=== PATIENT | female | born 1935 | race African-American/Black ===

== ENCOUNTER 2019-06-30 18:07 | Emergency (ER) | payer MEDICARE, BC ==
[~2019-06-30] VITALS: Ht 162.6 cm; Wt 66.0 kg
[2019-06-30] MEDS ORDERED: ONDANSETRON 4MG ODT PO ONE (18:45)
[2019-06-30] MEDS ORDERED: MORPHINE SULFATE 10 MG/ML CPJ IM ONE (18:45)
[2019-06-30 20:59] VITALS: BP 183/68
== END 2019-06-30 21:02 | disposition home or self-care (01) ==
LOC: ER 18:07
DX: S42.214A Unspecified nondisplaced fracture of surgical neck of right humerus, initial encounter for closed fracture (principal); I12.9 Hypertensive chronic kidney disease with stage 1 through stage 4 chronic kidney disease, or unspecified chronic kidney disease; N18.9 Chronic kidney disease, unspecified; J44.9 Chronic obstructive pulmonary disease, unspecified; Z88.0 Allergy status to penicillin; Z88.2 Allergy status to sulfonamides; Z99.81 Dependence on supplemental oxygen; W01.0XXA Fall on same level from slipping, tripping and stumbling without subsequent striking against object, initial encounter; Y93.89 Activity, other specified; Y92.018 Other place in single-family (private) house as the place of occurrence of the external cause
CPT/HCPCS: 71045; 73030; 96372; 99283; J2270; Q0162; A4565

== ENCOUNTER 2019-07-11 10:44 | Inpatient (IN) | payer MEDICARE, OTHER ==
[~2019-07-11] VITALS: Ht 160 cm; Wt 49.4 kg
[2019-07-11] MEDS ORDERED: ONDANSETRON HCL 4MG/2ML INJ IV STA (11:58)
[2019-07-11] MEDS ORDERED: MORPHINE SULFATE 4 MG/ML CPJ (NOT FOR IM USE) IV STA (11:58)
[2019-07-11 12:31] LABS: CHLORIDE 107 mEq/L (98-107)
[2019-07-11 12:32] LABS: INR 0.9; PROTHROMBIN TIME 9.4 sec (9.6-11.0)
[2019-07-11 12:38] LABS: HEMATOCRIT. 29.4 % (36.0-48.0); HEMOGLOBIN. 9.7 g/dL (12.0-16.0); MEAN CORPUSCULAR HEMOGLOBIN 33.7 pg (28.0-32.0); MEAN CORPUSCULAR VOLUME 102.1 fL (81.0-99.0); MEAN PLATELET VOLUME 6.7 fl (7.4-10.4); PLATELET 244 x1000/uL (130-400); RED BLOOD CELL COUNT 2.88 mill/uL (4.2-5.4); RED CELL DISTRIBUTION WIDTH 15.9 % (11.6-14.6)
[2019-07-11 12:39] LABS: EOSINOPHILS % 4.1 % (0.0-5.0); LYMPHOCYTES % 12.4 % (20.0-50.0); MONOCYTES % 4.5 % (2.0-8.0)
[2019-07-11] MEDS ORDERED: SODIUM CHLORIDE 0.9% 1,000 ML IV ONE (14:00)
[2019-07-11 20:00] VITALS: BP 144/71
[2019-07-11] MEDS ORDERED: ONDANSETRON HCL 4MG/2ML INJ IV PRN (20:00)
[2019-07-11] MEDS ORDERED: GUAIFENESIN 200MG/10ML SUGAR FREE UDC PO PRN (20:00)
[2019-07-11] MEDS ORDERED: MAGNESIUM HYDROXIDE 400MG/5ML 30ML UDC PO PRN (20:00)
[2019-07-11] MEDS ORDERED: IPRATROPIUM/ALBUTEROL 0.5-3(2.5)MG/3ML NEB NEB PRN (20:00)
[2019-07-11] MEDS ORDERED: DIPHENHYDRAMINE 12.5MG/5ML UDC PO PRN (20:00)
[2019-07-11] MEDS ORDERED: MAGNESIUM/ALUMINUM HYDROXIDE/SIMETHICONE 30ML UDC PO PRN (20:00)
[2019-07-11] MEDS ORDERED: ENOXAPARIN 30MG/0.3ML SYR SUBCUT SCH (20:30)
[2019-07-11] MEDS: PANTOPRAZOLE 40MG DR TABLET PO SCH (21:50)
[2019-07-11] MEDS: SODIUM CHLORIDE 0.9% INJ 3ML FLUSH IVF SCH (21:54)
[2019-07-11 22:26] VITALS: BP 122/64
[2019-07-11] MEDS ORDERED: TRAM150C25 PO (23:50)
[2019-07-11] MEDS ORDERED: PANT40TA4 PO (23:50)
[2019-07-11] MEDS ORDERED: DIPH50CA47 PO (23:50)
[2019-07-11] MEDS ORDERED: LOSA100T32 MT (23:50)
[2019-07-11] MEDS ORDERED: ATROV INH (23:50)
[2019-07-12] VITALS: BP 145/65
[2019-07-12] MEDS: IPRATROPIUM/ALBUTEROL 0.5-3(2.5)MG/3ML NEB HHN SCH ×6 (00:50→19:57)
[2019-07-12] MEDS: TRAMADOL 50MG TABLET PO PRN ×3 (02:47→15:09)
[2019-07-12 04:00] VITALS: BP 126/85
[2019-07-12] MEDS: SODIUM CHLORIDE 0.9% INJ 3ML FLUSH IVF SCH ×2 (06:25→14:50)
[2019-07-12] MEDS: PANTOPRAZOLE 40MG DR TABLET PO SCH (06:25)
[2019-07-12 08:00] VITALS: BP 140/80
[2019-07-12] MEDS: LOSARTAN POTASSIUM 100 MG TABLET PO SCH (08:53)
[2019-07-12] MEDS: DOCUSATE SODIUM 100MG CAPSULE PO SCH ×2 (08:53→17:00)
[2019-07-12 12:00] VITALS: BP 123/50
[2019-07-12 16:00] VITALS: BP 156/67
[2019-07-12] MEDS: DEXT 5%/0.45% NACL 1000ML 1,000 ML IV SCH (18:35)
[2019-07-12 20:00] VITALS: BP 146/69
[2019-07-13] VITALS: BP 146/63
[2019-07-13] MEDS: SODIUM CHLORIDE 0.9% INJ 3ML FLUSH IVF SCH ×3 (03:09→21:25)
[2019-07-13 04:00] VITALS: BP 148/71
[2019-07-13] MEDS: IPRATROPIUM/ALBUTEROL 0.5-3(2.5)MG/3ML NEB HHN SCH ×6 (05:11→21:08)
[2019-07-13] MEDS: DEXT 5%/0.45% NACL 1000ML 1,000 ML IV SCH ×2 (07:05→21:24)
[2019-07-13] MEDS ORDERED: NORMAL SALINE 0.9% 10 ML SYR ONE (07:23)
[2019-07-13] MEDS ORDERED: VANCOMYCIN HCL 1 GM/VIAL ONE (07:23)
[2019-07-13] MEDS ORDERED: GENTAMICIN SULF 40MG/ML 2ML VIAL ONE (07:23)
[2019-07-13] MEDS ORDERED: BACITRACIN 50,000 UNITS/VIAL ONE (07:23)
[2019-07-13] MEDS ORDERED: BACITRACIN 15GM TUBE TOP ONE (07:23)
[2019-07-13] MEDS ORDERED: CLINDAMYCIN 600 MG in DEXTROSE 5% WATER 50 ML IV SCH (07:45)
[2019-07-13] MEDS ORDERED: FENTANYL CITRATE/PF 50MCG/ML 2ML VIAL ONE (07:46)
[2019-07-13] MEDS ORDERED: ROCURONIUM BROMIDE 10MG/ML VIAL 5ML IV ONE (07:46)
[2019-07-13] MEDS ORDERED: MIDAZOLAM HCL 2 MG/2 ML VIAL ONE (07:47)
[2019-07-13] MEDS ORDERED: ONDANSETRON HCL 4MG/2ML INJ ONE (07:47)
[2019-07-13] MEDS ORDERED: SUCCINYLCHOLINE CHLORIDE 200MG/10ML IV ONE (07:47)
[2019-07-13] MEDS ORDERED: METOCLOPRAMIDE HCL 10MG/2ML VIAL ONE (07:47)
[2019-07-13] MEDS ORDERED: SODIUM CHLORIDE 0.9% 10ML VIAL ONE (07:47)
[2019-07-13] MEDS ORDERED: PHENYLEPHRINE HCL 10 MG/ML 1ML (IV VIAL) IV ONE (07:47)
[2019-07-13] MEDS ORDERED: GLYCOPYRROLATE 0.2 MG/ML 2ML VIAL ONE (07:47)
[2019-07-13] MEDS ORDERED: PROPOFOL 200MG/20ML VIAL IV ONE (07:47)
[2019-07-13] MEDS ORDERED: EPHEDRINE SULFATE 50MG/ML VIAL ONE (07:47)
[2019-07-13] MEDS ORDERED: NEOSTIGMINE METHYLSULFATE 1MG/ML 10 ML VIAL ONE (07:47)
[2019-07-13] MEDS ORDERED: LIDOCAINE HCL/PF 1% 10 MG/ML 5ML VIAL ONE (07:47)
[2019-07-13] MEDS ORDERED: CLINDAMYCIN 900 MG PREMIX 50 ML IV ONE (07:51)
[2019-07-13] MEDS ORDERED: BUPIVACAINE HCL/EPINEPHRINE 0.5%/0.0005 30ML ONE (07:54)
[2019-07-13] MEDS ORDERED: ROPIVACAINE HCL 10MG/ML 20 ML VIAL EPI ONE (07:56)
[2019-07-13 08:00] VITALS: BP 165/69
[2019-07-13] MEDS: DOCUSATE SODIUM 100MG CAPSULE PO SCH ×2 (08:46→16:56)
[2019-07-13] MEDS: LOSARTAN POTASSIUM 100 MG TABLET PO SCH (08:46)
[2019-07-13] MEDS: FAMOTIDINE 20MG TABLET PO SCH (08:46)
[2019-07-13] MEDS ORDERED: LABETALOL HCL 5MG/ML VIAL 20ML IV ONE (09:39)
[2019-07-13] MEDS ORDERED: ONDANSETRON HCL 4MG/2ML INJ IV PRN (10:15)
[2019-07-13] MEDS ORDERED: MORPHINE SULFATE 2 MG/ML CPJ (NOT FOR IM USE) IV PRN (10:15)
[2019-07-13] MEDS ORDERED: MEPERIDINE HCL/PF 25MG/ML CPJ IV PRN (10:15)
[2019-07-13] MEDS ORDERED: MORPHINE SULFATE 10 MG/ML CPJ ONE (10:19)
[2019-07-13] MEDS ORDERED: HYDROMORPHONE PCA 50 ML IV ONE (10:21)
[2019-07-13] MEDS ORDERED: SODIUM CHLORIDE 0.9% 1,000 ML IV ONE (10:42)
[2019-07-13] MEDS ORDERED: HYDROMORPHONE PCA 10MG/50ML IV PRN (11:00)
[2019-07-13] MEDS ORDERED: DIPHENHYDRAMINE INJ IV PRN (11:00)
[2019-07-13] MEDS: HYDROMORPHONE HCL/PF 2MG/ML CPJ IV PRN ×2 (11:00→11:36)
[2019-07-13] MEDS ORDERED: ONDANSETRON INJ IV PRN (11:00)
[2019-07-13] MEDS ORDERED: NALOXONE INJ IV PRN (11:00)
[2019-07-13 12:30] VITALS: BP 121/78
[2019-07-13 16:00] VITALS: BP 100/52
[2019-07-13] MEDS: CLINDAMYCIN 600 MG in DEXTROSE 5% WATER 50 ML IV SCH (16:55)
[2019-07-13 20:00] VITALS: BP 145/59
[2019-07-14] VITALS: BP 128/56
[2019-07-14] MEDS: CLINDAMYCIN 600 MG in DEXTROSE 5% WATER 50 ML IV SCH ×3 (00:45→15:44)
[2019-07-14 04:00] VITALS: BP 103/57
[2019-07-14] MEDS: IPRATROPIUM/ALBUTEROL 0.5-3(2.5)MG/3ML NEB HHN SCH ×6 (04:00→21:31)
[2019-07-14] MEDS: SODIUM CHLORIDE 0.9% INJ 3ML FLUSH IVF SCH ×4 (06:00→23:42)
[2019-07-14 08:00] VITALS: BP 160/134
[2019-07-14] MEDS: LOSARTAN POTASSIUM 100 MG TABLET PO SCH (09:21)
[2019-07-14] MEDS: CLONIDINE 0.1MG TABLET PO PRN (09:21)
[2019-07-14] MEDS: DOCUSATE SODIUM 100MG CAPSULE PO SCH ×2 (09:22→17:02)
[2019-07-14] MEDS: FAMOTIDINE 20MG TABLET PO SCH (09:22)
[2019-07-14] MEDS: ACETAMINOPHEN 325MG TABLET PO PRN ×3 (09:23→20:48)
[2019-07-14] MEDS: DEXT 5%/0.45% NACL 1000ML 1,000 ML IV SCH ×2 (09:45→23:05)
[2019-07-14 10:42] LABS: HEMATOCRIT. 23.4 % (36.0-48.0); HEMOGLOBIN. 7.7 g/dL (12.0-16.0); MEAN CORPUSCULAR HEMOGLOBIN 33.6 pg (28.0-32.0); MEAN CORPUSCULAR VOLUME 102.4 fL (81.0-99.0); MEAN PLATELET VOLUME 7.1 fl (7.4-10.4); PLATELET 220 x1000/uL (130-400); RED BLOOD CELL COUNT 2.28 mill/uL (4.2-5.4); RED CELL DISTRIBUTION WIDTH 15.8 % (11.6-14.6)
[2019-07-14 12:00] VITALS: BP 133/53
[2019-07-14] MEDS: TRAMADOL 50MG TABLET PO PRN (12:58)
[2019-07-14 16:00] VITALS: BP 144/54
[2019-07-14] MEDS ORDERED: TRAMADOL 50MG TABLET PO PRN (16:00)
[2019-07-14 16:14] LABS: PLATELET ESTIMATE NORMAL
[2019-07-14 20:00] VITALS: BP 94/36
[2019-07-15] VITALS (9 sets, daily range): BP systolic 93–132; BP diastolic 33–59
[2019-07-15] MEDS: IPRATROPIUM/ALBUTEROL 0.5-3(2.5)MG/3ML NEB HHN SCH ×7 (01:20→23:50)
[2019-07-15] MEDS: ACETAMINOPHEN 325MG TABLET PO PRN ×2 (02:11→22:09)
[2019-07-15] MEDS: SODIUM CHLORIDE 0.9% INJ 3ML FLUSH IVF SCH ×3 (06:00→23:10)
[2019-07-15] MEDS: FAMOTIDINE 20MG TABLET PO SCH (09:39)
[2019-07-15] MEDS: LOSARTAN POTASSIUM 100 MG TABLET PO SCH (09:39)
[2019-07-15] MEDS: DOCUSATE SODIUM 100MG CAPSULE PO SCH ×2 (09:39→17:33)
[2019-07-15] MEDS: DEXT 5%/0.45% NACL 1000ML 1,000 ML IV SCH (11:43)
[2019-07-16] VITALS (7 sets, daily range): BP systolic 118–152; BP diastolic 46–77
[2019-07-16 01:00] LABS: HEMATOCRIT 26.3 % (36.0-48.0); HEMOGLOBIN 8.8 g/dL (12.0-16.0)
[2019-07-16] MEDS: IPRATROPIUM/ALBUTEROL 0.5-3(2.5)MG/3ML NEB HHN SCH ×3 (04:00→20:00)
[2019-07-16] MEDS: SODIUM CHLORIDE 0.9% INJ 3ML FLUSH IVF SCH ×3 (05:13→23:23)
[2019-07-16] MEDS: LOSARTAN POTASSIUM 100 MG TABLET PO SCH (08:19)
[2019-07-16] MEDS: FAMOTIDINE 20MG TABLET PO SCH (08:19)
[2019-07-16] MEDS: DOCUSATE SODIUM 100MG CAPSULE PO SCH ×2 (08:19→17:24)
[2019-07-16 14:22] LABS: HEMATOCRIT 28.7 % (36.0-48.0); HEMOGLOBIN 9.6 g/dL (12.0-16.0); MEAN CORPUSCULAR VOLUME 98.9 fL (81.0-99.0); PLATELET 187 x1000/uL (130-400); RED CELL DISTRIBUTION WIDTH 19.3 % (11.6-14.6)
[2019-07-16] MEDS ORDERED: HYDROCODONE/ACETAMINOPHEN 10/325MG TABLET PO PRN (21:30)
[2019-07-16] MEDS ORDERED: KETOROLAC 15MG/ML VIAL IV PRN (21:30)
[2019-07-17] VITALS: BP 155/65
[2019-07-17] MEDS: IPRATROPIUM/ALBUTEROL 0.5-3(2.5)MG/3ML NEB HHN SCH ×6 (00:46→21:24)
[2019-07-17 04:00] VITALS: BP 153/63
[2019-07-17] MEDS: SODIUM CHLORIDE 0.9% INJ 3ML FLUSH IVF SCH ×3 (05:38→21:07)
[2019-07-17 08:00] VITALS: BP 147/79
[2019-07-17] MEDS: LOSARTAN POTASSIUM 100 MG TABLET PO SCH (08:41)
[2019-07-17] MEDS: DOCUSATE SODIUM 100MG CAPSULE PO SCH ×2 (08:41→17:00)
[2019-07-17] MEDS: FAMOTIDINE 20MG TABLET PO SCH (08:41)
[2019-07-17 12:00] VITALS: BP 147/60
[2019-07-17 16:00] VITALS: BP 146/66
[2019-07-17] MEDS: HYDROCODONE/ACETAMINOPHEN 10/325MG TABLET PO PRN ×2 (17:19→23:35)
[2019-07-17 20:00] VITALS: BP 186/84
[2019-07-17] MEDS: CLONIDINE 0.1MG TABLET PO PRN (21:02)
[2019-07-17] MEDS ORDERED: ZOLPIDEM TARTRATE 5MG TABLET PO PRN (22:00)
[2019-07-18] VITALS: BP 163/64
[2019-07-18] MEDS: IPRATROPIUM/ALBUTEROL 0.5-3(2.5)MG/3ML NEB HHN SCH ×4 (01:45→12:00)
[2019-07-18 04:00] VITALS: BP 163/64
[2019-07-18] MEDS: CLONIDINE 0.1MG TABLET PO PRN (05:36)
[2019-07-18] MEDS: SODIUM CHLORIDE 0.9% INJ 3ML FLUSH IVF SCH (05:37)
[2019-07-18 08:00] VITALS: BP 133/57
[2019-07-18] MEDS: FAMOTIDINE 20MG TABLET PO SCH (09:19)
[2019-07-18] MEDS: DOCUSATE SODIUM 100MG CAPSULE PO SCH (09:19)
[2019-07-18] MEDS: LOSARTAN POTASSIUM 100 MG TABLET PO SCH (09:19)
[2019-07-18 11:21] VITALS: BP 133/57
[2019-07-18 12:00] VITALS: BP 105/60
== END 2019-07-18 13:58 | disposition home health service (06) | DRG 493 ==
LOC: ER 10:44 → 6EST 14:19 → ENRESERV 16:42 → ER 18:31
PROVIDERS: ADMIT Internal Medicine; ATTEND Internal Medicine
PROC: 0PSF36Z Reposition Right Humeral Shaft with Intramedullary Internal Fixation Device, Percutaneous Approach (ICD-10-PCS; principal; 2019-07-13)
PROC: 0LQ10ZZ Repair Right Shoulder Tendon, Open Approach (ICD-10-PCS; 2019-07-13)
PROC: 02HV33Z Insertion of Infusion Device into Superior Vena Cava, Percutaneous Approach (ICD-10-PCS; 2019-07-15)
PROC: B548ZZA Ultrasonography of Superior Vena Cava, Guidance (ICD-10-PCS; 2019-07-15)
PROC: 30233N1 Transfusion of Nonautologous Red Blood Cells into Peripheral Vein, Percutaneous Approach (ICD-10-PCS; 2019-07-15)
DX: S42.201A Unspecified fracture of upper end of right humerus, initial encounter for closed fracture (principal); J96.10 Chronic respiratory failure, unspecified whether with hypoxia or hypercapnia; E44.0 Moderate protein-calorie malnutrition; N18.9 Chronic kidney disease, unspecified; Z96.649 Presence of unspecified artificial hip joint; D64.9 Anemia, unspecified; J43.9 Emphysema, unspecified; M75.101 Unspecified rotator cuff tear or rupture of right shoulder, not specified as traumatic; I12.9 Hypertensive chronic kidney disease with stage 1 through stage 4 chronic kidney disease, or unspecified chronic kidney disease; W18.39XA Other fall on same level, initial encounter; Z87.891 Personal history of nicotine dependence; Y93.89 Activity, other specified; Y92.89 Other specified places as the place of occurrence of the external cause; Z99.81 Dependence on supplemental oxygen; Y99.8 Other external cause status; Z88.1 Allergy status to other antibiotic agents; Z88.2 Allergy status to sulfonamides; Z79.899 Other long term (current) drug therapy
CPT/HCPCS: 36415; 36573; 71045; 73030; 73060; 76000; 76937; 80048; 82962; 85014; 85018; 85027; 86850; 86900; 86920; 93971; 94640; 97116; 97162; 97530; 99285; C1725; J0171; J0330; J1170; J1200; J1580; J1650; J1885; J2175; J2250; J2270; J2370; J2405; J2704; J2710; J2765; J2795; J3010; J3370; J3490; J7030; J7040; J7060; J7620; P9016; Q0163

== ENCOUNTER 2019-08-21 02:20 | Inpatient (IN) | payer MEDICARE, OTHER ==
[~2019-08-21] VITALS: Ht 160 cm; Wt 49.4 kg
[~2019-08-21 02:20] MED LIST: ATROV INH; DIPH50CA47 PO; LOSA100T32 MT; PANT40TA4 PO; TRAM150C25 PO
[2019-08-21] MEDS ORDERED: SODIUM CHLORIDE 0.9% 1000ML BAG (SEPSIS BOLUS) IV ONE (02:45)
[2019-08-21] MEDS ORDERED: KETOROLAC 30MG/ML VIAL IV STA (02:45)
[2019-08-21] MEDS ORDERED: ONDANSETRON HCL 4MG/2ML INJ IV STA (02:45)
[2019-08-21 03:29] LABS: HEMATOCRIT. 25.4 % (36.0-48.0); HEMOGLOBIN. 8.4 g/dL (12.0-16.0); MEAN CORPUSCULAR HEMOGLOBIN 33.4 pg (28.0-32.0); MEAN CORPUSCULAR VOLUME 101.4 fL (81.0-99.0); MEAN PLATELET VOLUME 7.6 fl (7.4-10.4); PLATELET 213 x1000/uL (130-400); RED CELL DISTRIBUTION WIDTH 15.1 % (11.6-14.6)
[2019-08-21 03:35] LABS: CHLORIDE 100 mEq/L (98-107)
[2019-08-21 03:39] LABS: ETHANOL BLOOD < 10 mg/dL
[2019-08-21 04:17] LABS: PROTHROMBIN TIME 10.7 sec (9.6-11.0)
[2019-08-21 04:25] LABS: BG BASE EXCESS 5.9 mmol/L (-2.0-2.0); BG CARBOXYHEMOGLOBIN 0.5 % (0.5-1.5); BG DEOXYHEMOGLOBIN 21.8 % (0.0-5.0); BG FRACTION INSPIRED OXYGEN 21; BG HCO3 ACT 30.8 mmol/L (22.0-26.0); BG OXYGEN SATURATION 78.1 % (92.0-98.5); BG OXYHEMOGLOBIN 77.7 % (94.0-97.0); BG PCO2 47.2 mmHg (35.0-45.0); BG PH 7.433 (7.350-7.450); BG PO2 40.5 mmHg (75.0-100.0); BG SAMPLE SITE LEFT BRACHIAL; BG TOTAL HEMOGLOBIN 9.1 g/dL (12.0-18.0); BG VENT MODE ROOM AIR
[2019-08-21 05:21] LABS: PLATELET ESTIMATE NORMAL
[2019-08-21] MEDS ORDERED: SODIUM CHLORIDE 0.9% 1,000 ML IV ONE (05:52)
[2019-08-21 07:37] LABS: CLARITY URINE CLEAR (CLEAR); COLOR URINE YELLOW (YELLOW); KETONES URINE NEGATIVE (NEGATIVE); LEUKOCYTE ESTERASE URINE NEGATIVE (NEGATIVE); NITRITE URINE NEGATIVE (NEGATIVE); OCCULT BLOOD URINE NEGATIVE (NEGATIVE); PROTEIN URINE 1+ (NEGATIVE); SPECIFIC GRAVITY URINE 1.015 (1.005-1.030)
[2019-08-21 08:10] LABS: *AMPHETAMINES SCREEN URINE NEGATIVE (NEGATIVE); *BARBITURATES SCREEN URINE NEGATIVE (NEGATIVE); *BENZODIAZEPINES SCREEN URINE NEGATIVE (NEGATIVE); *COCAINE SCREEN URINE NEGATIVE (NEGATIVE)
[2019-08-21 08:11] LABS: CANNABINOID URINE SCREEN NEGATIVE (NEGATIVE); METHADONE URINE SCREEN NEGATIVE (NEGATIVE); OPIATES URINE SCREEN NEGATIVE (NEGATIVE); PHENCYCLIDINE URINE SCREEN NEGATIVE (NEGATIVE)
[2019-08-21] MEDS ORDERED: DOCUSATE SODIUM 100MG CAPSULE PO PRN (09:15)
[2019-08-21] MEDS ORDERED: ONDANSETRON HCL 4MG/2ML INJ IV PRN (09:15)
[2019-08-21] MEDS ORDERED: GUAIFENESIN 200MG/10ML SUGAR FREE UDC PO PRN (09:15)
[2019-08-21] MEDS ORDERED: MAGNESIUM/ALUMINUM HYDROXIDE/SIMETHICONE 30ML UDC PO PRN (09:15)
[2019-08-21] MEDS ORDERED: ACETAMINOPHEN 325MG TABLET PO PRN (09:15)
[2019-08-21 10:14] LABS: T4 FREE 1.04 ng/dL (0.76-1.46)
[2019-08-21 10:17] LABS: FOLIC ACID (FOLATE) SERUM 5.1 ng/mL (>5.38)
[2019-08-21] MEDS ORDERED: ENOXAPARIN 30MG/0.3ML SYR SUBCUT SCH (12:00)
[2019-08-21] MEDS ORDERED: FOLIC ACID 1 MG, THIAMINE HCL 100 MG, MVI, ADULT NO.1 10 ML in DEXTROSE 5% WATER 1,000 ML IV ONE ×4 (15:30)
[2019-08-21] MEDS ORDERED: TRAMADOL 50MG TABLET PO PRN (16:47)
[2019-08-21] MEDS ORDERED: NITROGLYCERIN 0.4MG TABLET SL SL PRN (17:00)
[2019-08-21] MEDS ORDERED: LEVOFLOXACIN 500MG PREMIX 100 ML IV NR (19:18)
[2019-08-21] MEDS ORDERED: ZOLPIDEM TARTRATE 5MG TABLET PO PRN (21:00)
[2019-08-21 22:00] VITALS: BP 179/77
[2019-08-21] MEDS: METHYLPREDNISOLONE SOD SUCC 125 MG/2 ML VIAL IV SCH (23:13)
[2019-08-22] VITALS (7 sets, daily range): BP systolic 123–179; BP diastolic 61–81
[2019-08-22 00:27] LABS: CREATINE KINASE MB FRACTION 11.5 ng/mL (0.5-3.6)
[2019-08-22] MEDS: METHYLPREDNISOLONE SOD SUCC 125 MG/2 ML VIAL IV SCH ×3 (06:00→21:32)
[2019-08-22] MEDS: GUAIFENESIN/DM 600MG/30MG ER TAB 12HR PO SCH ×2 (09:00→21:33)
[2019-08-22] MEDS: ASCORBIC ACID 500 MG TABLET PO SCH ×2 (09:55→21:33)
[2019-08-22] MEDS: FOLIC ACID 1MG TABLET PO SCH (09:55)
[2019-08-22] MEDS: FAMOTIDINE 20MG TABLET PO SCH ×2 (09:55→21:32)
[2019-08-22] MEDS: ASPIRIN 325MG EC TABLET PO SCH (09:55)
[2019-08-22] MEDS: ZINC SULFATE 220 MG ( 50 ) CAPSULE PO SCH (09:56)
[2019-08-22] MEDS: ENOXAPARIN 60MG/0.6ML SYR SUBCUT SCH (10:03)
[2019-08-22] MEDS ORDERED: AMLODIPINE 5MG TABLET PO NR (13:15)
[2019-08-22] MEDS: SUCRALFATE 1 G/10 ML UDC PO SCH ×3 (13:47→21:35)
[2019-08-22] MEDS: NITROGLYCERIN 0.2MG/HR PATCH TOP SCH (14:02)
[2019-08-22 18:07] LABS: CREATINE KINASE MB FRACTION 5.8 ng/mL (0.5-3.6)
[2019-08-22] MEDS ORDERED: LEVOFLOXACIN 500MG PREMIX 100 ML IV SCH (19:21)
[2019-08-22] MEDS: LEVOFLOXACIN 250MG PREMIX 50 ML IV SCH (20:04)
[2019-08-23] VITALS: BP 118/68
[2019-08-23] MEDS: IPRATROPIUM/ALBUTEROL 0.5-3(2.5)MG/3ML NEB HHN SCH ×6 (00:37→21:35)
[2019-08-23] MEDS: METHYLPREDNISOLONE SOD SUCC 125 MG/2 ML VIAL IV SCH ×3 (05:12→21:58)
[2019-08-23 07:15] LABS: HEMATOCRIT. 25.8 % (36.0-48.0); HEMOGLOBIN. 8.6 g/dL (12.0-16.0); MEAN CORPUSCULAR HEMOGLOBIN 33.5 pg (28.0-32.0); MEAN CORPUSCULAR VOLUME 101.1 fL (81.0-99.0); MEAN PLATELET VOLUME 7.7 fl (7.4-10.4); PLATELET 239 x1000/uL (130-400); RED BLOOD CELL COUNT 2.56 mill/uL (4.2-5.4); RED CELL DISTRIBUTION WIDTH 14.7 % (11.6-14.6)
[2019-08-23 07:59] LABS: CHLORIDE 101 mEq/L (98-107)
[2019-08-23 08:00] VITALS: BP 128/62
[2019-08-23 08:12] LABS: PHOSPHORUS 2.6 mg/dL (2.5-4.9)
[2019-08-23] MEDS: FOLIC ACID 1MG TABLET PO SCH (08:39)
[2019-08-23] MEDS: AMLODIPINE 5MG TABLET PO SCH (08:39)
[2019-08-23] MEDS: ZINC SULFATE 220 MG ( 50 ) CAPSULE PO SCH (08:39)
[2019-08-23] MEDS: GUAIFENESIN/DM 600MG/30MG ER TAB 12HR PO SCH ×2 (08:39→21:57)
[2019-08-23] MEDS: ENOXAPARIN 60MG/0.6ML SYR SUBCUT SCH (08:39)
[2019-08-23] MEDS: FAMOTIDINE 20MG TABLET PO SCH ×2 (08:39→21:57)
[2019-08-23] MEDS: ASCORBIC ACID 500 MG TABLET PO SCH ×2 (08:39→21:57)
[2019-08-23] MEDS: SUCRALFATE 1 G/10 ML UDC PO SCH ×5 (08:39→21:57)
[2019-08-23] MEDS: NITROGLYCERIN 0.2MG/HR PATCH TOP SCH (08:40)
[2019-08-23] MEDS: ASPIRIN 325MG EC TABLET PO SCH (08:40)
[2019-08-23 09:07] LABS: CREATINE KINASE MB FRACTION 3.5 ng/mL (0.5-3.6)
[2019-08-23 10:03] LABS: PLATELET ESTIMATE NORMAL
[2019-08-23 12:00] VITALS: BP 135/68
[2019-08-23] MEDS ORDERED: ENOXAPARIN 60MG/0.6ML SYR SUBCUT SCH (15:53)
[2019-08-23 20:00] VITALS: BP 156/69
[2019-08-23] MEDS: LEVOFLOXACIN 250MG PREMIX 50 ML IV SCH (21:57)
[2019-08-24] VITALS: BP 119/62
[2019-08-24] MEDS: IPRATROPIUM/ALBUTEROL 0.5-3(2.5)MG/3ML NEB HHN SCH ×6 (01:00→20:00)
[2019-08-24 04:00] VITALS: BP 135/81
[2019-08-24] MEDS: METHYLPREDNISOLONE SOD SUCC 125 MG/2 ML VIAL IV SCH ×3 (05:41→21:51)
[2019-08-24 08:00] VITALS: BP 165/81
[2019-08-24] MEDS: GUAIFENESIN/DM 600MG/30MG ER TAB 12HR PO SCH ×2 (08:30→21:51)
[2019-08-24] MEDS: ZINC SULFATE 220 MG ( 50 ) CAPSULE PO SCH (08:30)
[2019-08-24] MEDS: SUCRALFATE 1 G/10 ML UDC PO SCH ×4 (08:30→21:51)
[2019-08-24] MEDS: FAMOTIDINE 20MG TABLET PO SCH (08:31)
[2019-08-24] MEDS: ASCORBIC ACID 500 MG TABLET PO SCH ×2 (08:31→21:51)
[2019-08-24] MEDS: ASPIRIN 325MG EC TABLET PO SCH (08:31)
[2019-08-24] MEDS: FOLIC ACID 1MG TABLET PO SCH (08:31)
[2019-08-24] MEDS: ENOXAPARIN 60MG/0.6ML SYR SUBCUT SCH (08:35)
[2019-08-24] MEDS: AMLODIPINE 5MG TABLET PO SCH (08:39)
[2019-08-24] MEDS: NITROGLYCERIN 0.2MG/HR PATCH TOP SCH (08:39)
[2019-08-24 12:00] VITALS: BP 164/91
[2019-08-24 16:00] VITALS: BP 153/76
[2019-08-24] MEDS: IPRATROPIUM/ALBUTEROL 0.5-3(2.5)MG/3ML NEB NEB PRN (18:45)
[2019-08-24 20:00] VITALS: BP 153/75
[2019-08-25] VITALS: BP 165/51
[2019-08-25] MEDS: CLONIDINE 0.1MG TABLET PO PRN ×2 (00:06→06:06)
[2019-08-25] MEDS: IPRATROPIUM/ALBUTEROL 0.5-3(2.5)MG/3ML NEB HHN SCH ×6 (00:42→21:54)
[2019-08-25 04:00] VITALS: BP 173/84
[2019-08-25] MEDS: METHYLPREDNISOLONE SOD SUCC 125 MG/2 ML VIAL IV SCH ×3 (07:24→22:29)
[2019-08-25 08:00] VITALS: BP 151/80
[2019-08-25] MEDS: ZINC SULFATE 220 MG ( 50 ) CAPSULE PO SCH (08:32)
[2019-08-25] MEDS: FAMOTIDINE 20MG TABLET PO SCH (08:32)
[2019-08-25] MEDS: ENOXAPARIN 60MG/0.6ML SYR SUBCUT SCH (08:32)
[2019-08-25] MEDS: FOLIC ACID 1MG TABLET PO SCH (08:32)
[2019-08-25] MEDS: ASCORBIC ACID 500 MG TABLET PO SCH ×3 (08:32→22:29)
[2019-08-25] MEDS: GUAIFENESIN/DM 600MG/30MG ER TAB 12HR PO SCH ×3 (08:32→22:29)
[2019-08-25] MEDS: ASPIRIN 325MG EC TABLET PO SCH (08:32)
[2019-08-25] MEDS: SUCRALFATE 1 G/10 ML UDC PO SCH ×5 (08:32→22:29)
[2019-08-25] MEDS: AMLODIPINE 5MG TABLET PO SCH (08:33)
[2019-08-25] MEDS: NITROGLYCERIN 0.2MG/HR PATCH TOP SCH (08:34)
[2019-08-25 12:00] VITALS: BP 148/71
[2019-08-25] MEDS: LEVOFLOXACIN 250MG TABLET PO SCH (12:08)
[2019-08-25 16:00] VITALS: BP 145/72
[2019-08-25 20:00] VITALS: BP 146/71
[2019-08-26] VITALS: BP 153/75
[2019-08-26 04:00] VITALS: BP 142/82
[2019-08-26] MEDS: IPRATROPIUM/ALBUTEROL 0.5-3(2.5)MG/3ML NEB HHN SCH ×6 (04:47→19:59)
[2019-08-26] MEDS: METHYLPREDNISOLONE SOD SUCC 125 MG/2 ML VIAL IV SCH ×3 (05:59→21:29)
[2019-08-26 08:00] VITALS: BP 160/70
[2019-08-26] MEDS: SUCRALFATE 1 G/10 ML UDC PO SCH ×4 (09:45→21:28)
[2019-08-26] MEDS: ZINC SULFATE 220 MG ( 50 ) CAPSULE PO SCH (09:45)
[2019-08-26] MEDS: FOLIC ACID 1MG TABLET PO SCH (09:45)
[2019-08-26] MEDS: FAMOTIDINE 20MG TABLET PO SCH (09:46)
[2019-08-26] MEDS: ASCORBIC ACID 500 MG TABLET PO SCH ×2 (09:46→21:29)
[2019-08-26] MEDS: GUAIFENESIN/DM 600MG/30MG ER TAB 12HR PO SCH ×2 (09:46→21:28)
[2019-08-26] MEDS: ASPIRIN 325MG EC TABLET PO SCH (09:46)
[2019-08-26] MEDS: NITROGLYCERIN 0.2MG/HR PATCH TOP SCH (09:47)
[2019-08-26] MEDS: ENOXAPARIN 60MG/0.6ML SYR SUBCUT SCH (09:47)
[2019-08-26] MEDS: AMLODIPINE 5MG TABLET PO SCH (09:48)
[2019-08-26 12:00] VITALS: BP 130/68
[2019-08-26 16:00] VITALS: BP 130/76
[2019-08-26] MEDS: LACTULOSE 20G/30ML UDC PO SCH ×2 (18:00→21:28)
[2019-08-26 20:00] VITALS: BP 160/76
[2019-08-26] MEDS: CLONIDINE 0.1MG TABLET PO PRN (21:29)
[2019-08-27] VITALS: BP 157/76
[2019-08-27] MEDS: IPRATROPIUM/ALBUTEROL 0.5-3(2.5)MG/3ML NEB HHN SCH ×6 (00:15→21:42)
[2019-08-27 04:00] VITALS: BP 158/82
[2019-08-27] MEDS: METHYLPREDNISOLONE SOD SUCC 125 MG/2 ML VIAL IV SCH ×3 (06:07→21:33)
[2019-08-27 08:00] VITALS: BP 164/81
[2019-08-27] MEDS: SUCRALFATE 1 G/10 ML UDC PO SCH ×4 (08:52→21:32)
[2019-08-27] MEDS: LACTULOSE 20G/30ML UDC PO SCH (08:52)
[2019-08-27] MEDS: AMLODIPINE 5MG TABLET PO SCH (08:53)
[2019-08-27] MEDS: FOLIC ACID 1MG TABLET PO SCH (08:53)
[2019-08-27] MEDS: GUAIFENESIN/DM 600MG/30MG ER TAB 12HR PO SCH ×2 (08:53→21:32)
[2019-08-27] MEDS: ASPIRIN 325MG EC TABLET PO SCH (08:53)
[2019-08-27] MEDS: ASCORBIC ACID 500 MG TABLET PO SCH ×2 (08:54→21:32)
[2019-08-27] MEDS: ENOXAPARIN 60MG/0.6ML SYR SUBCUT SCH (08:54)
[2019-08-27] MEDS: ZINC SULFATE 220 MG ( 50 ) CAPSULE PO SCH (08:54)
[2019-08-27] MEDS: NITROGLYCERIN 0.2MG/HR PATCH TOP SCH (08:55)
[2019-08-27] MEDS: FAMOTIDINE 20MG TABLET PO SCH (08:55)
[2019-08-27] MEDS: LEVOFLOXACIN 250MG TABLET PO SCH (10:37)
[2019-08-27] MEDS ORDERED: HYDROCODONE/ACETAMINOPHEN 10/325MG TABLET PO PRN (11:45)
[2019-08-27 12:00] VITALS: BP 186/92
[2019-08-27 16:00] VITALS: BP 187/83
[2019-08-27] MEDS ORDERED: NA PHOS,M-B/NA PHOS,DI-BA ENEMA 118ML PR NR (16:15)
[2019-08-27] MEDS ORDERED: NA PHOS,M-B/NA PHOS,DI-BA ENEMA 118ML PR PRN (16:15)
[2019-08-27] MEDS: CLONIDINE 0.1MG TABLET PO PRN (18:55)
[2019-08-27] MEDS: NITROGLYCERIN OINT 1GM/INCH UDPKT TD SCH (19:01)
[2019-08-27 20:00] VITALS: BP 146/78
[2019-08-27] MEDS: METOPROLOL TARTRATE 25MG TABLET PO SCH (21:33)
[2019-08-28] VITALS (8 sets, daily range): BP systolic 153–193; BP diastolic 69–90
[2019-08-28] MEDS: IPRATROPIUM/ALBUTEROL 0.5-3(2.5)MG/3ML NEB HHN SCH ×6 (00:13→21:16)
[2019-08-28] MEDS: NITROGLYCERIN OINT 1GM/INCH UDPKT TD SCH ×4 (00:31→17:50)
[2019-08-28] MEDS: METHYLPREDNISOLONE SOD SUCC 125 MG/2 ML VIAL IV SCH ×3 (05:59→21:35)
[2019-08-28 06:59] LABS: HEMATOCRIT. 31.3 % (36.0-48.0); HEMOGLOBIN. 10.3 g/dL (12.0-16.0); MEAN CORPUSCULAR HEMOGLOBIN 33.1 pg (28.0-32.0); MEAN CORPUSCULAR VOLUME 100.3 fL (81.0-99.0); MEAN PLATELET VOLUME 7.7 fl (7.4-10.4); PLATELET 185 x1000/uL (130-400); RED BLOOD CELL COUNT 3.12 mill/uL (4.2-5.4); RED CELL DISTRIBUTION WIDTH 15.8 % (11.6-14.6)
[2019-08-28] MEDS ORDERED: SORBITOL 70% SOLN 30ML PO SCH (08:45)
[2019-08-28] MEDS: SUCRALFATE 1 G/10 ML UDC PO SCH ×3 (09:44→17:50)
[2019-08-28] MEDS: ZINC SULFATE 220 MG ( 50 ) CAPSULE PO SCH (09:45)
[2019-08-28] MEDS: ASCORBIC ACID 500 MG TABLET PO SCH ×2 (09:45→20:33)
[2019-08-28] MEDS: ASPIRIN 325MG EC TABLET PO SCH (09:45)
[2019-08-28] MEDS: GUAIFENESIN/DM 600MG/30MG ER TAB 12HR PO SCH ×2 (09:45→20:32)
[2019-08-28] MEDS: AMLODIPINE 5MG TABLET PO SCH ×2 (09:45→22:56)
[2019-08-28] MEDS: FOLIC ACID 1MG TABLET PO SCH (09:45)
[2019-08-28] MEDS: METOPROLOL TARTRATE 25MG TABLET PO SCH ×2 (09:46→20:33)
[2019-08-28] MEDS: ENOXAPARIN 60MG/0.6ML SYR SUBCUT SCH (09:49)
[2019-08-28] MEDS: BISACODYL 10MG SUPP PR SCH (10:03)
[2019-08-28] MEDS: FAMOTIDINE 20MG TABLET PO SCH (10:03)
[2019-08-28] MEDS ORDERED: KETOROLAC 10MG TABLET PO PRN (11:15)
[2019-08-28] MEDS: CLONIDINE 0.1MG TABLET PO PRN ×2 (11:36→20:33)
[2019-08-28] MEDS: HYDROCODONE/ACETAMINOPHEN 5/325MG TABLET PO PRN ×3 (13:42→22:56)
[2019-08-28 15:09] LABS: PLATELET ESTIMATE NORMAL
[2019-08-28] MEDS ORDERED: AMLODIPINE 5MG TABLET PO NR (15:45)
[2019-08-28] MEDS: IPRATROPIUM/ALBUTEROL 0.5-3(2.5)MG/3ML NEB NEB PRN (18:31)
[2019-08-28] MEDS: LORAZEPAM 2MG/ML CPJ IV PRN (18:33)
[2019-08-28] MEDS: HYDRALAZINE HCL 50MG TABLET PO SCH (20:33)
[2019-08-29] VITALS: BP 166/73
[2019-08-29] MEDS: NITROGLYCERIN OINT 1GM/INCH UDPKT TD SCH ×2 (00:33→06:14)
[2019-08-29] MEDS: IPRATROPIUM/ALBUTEROL 0.5-3(2.5)MG/3ML NEB HHN SCH ×4 (01:09→12:34)
[2019-08-29] MEDS: CLONIDINE 0.1MG TABLET PO PRN (03:02)
[2019-08-29 04:00] VITALS: BP 188/79
[2019-08-29] MEDS: METHYLPREDNISOLONE SOD SUCC 125 MG/2 ML VIAL IV SCH (06:00)
[2019-08-29] MEDS: HYDRALAZINE HCL 50MG TABLET PO SCH (06:15)
[2019-08-29] MEDS: AMLODIPINE 5MG TABLET PO SCH (06:15)
[2019-08-29 08:00] VITALS: BP 164/64
[2019-08-29] MEDS: ZINC SULFATE 220 MG ( 50 ) CAPSULE PO SCH (08:48)
[2019-08-29] MEDS: SUCRALFATE 1 G/10 ML UDC PO SCH (08:48)
[2019-08-29] MEDS: BISACODYL 10MG SUPP PR SCH (08:49)
[2019-08-29] MEDS: GUAIFENESIN/DM 600MG/30MG ER TAB 12HR PO SCH (08:49)
[2019-08-29] MEDS: FAMOTIDINE 20MG TABLET PO SCH (08:49)
[2019-08-29] MEDS: FOLIC ACID 1MG TABLET PO SCH (08:49)
[2019-08-29] MEDS: ASCORBIC ACID 500 MG TABLET PO SCH (08:49)
[2019-08-29] MEDS: ASPIRIN 325MG EC TABLET PO SCH (08:49)
[2019-08-29] MEDS: METOPROLOL TARTRATE 25MG TABLET PO SCH (08:49)
[2019-08-29] MEDS: LORAZEPAM 2MG/ML CPJ IV PRN (08:50)
[2019-08-29] MEDS: ENOXAPARIN 60MG/0.6ML SYR SUBCUT SCH (08:55)
[2019-08-29] MEDS: HYDROCODONE/ACETAMINOPHEN 5/325MG TABLET PO PRN (10:15)
[2019-08-29 11:53] VITALS: BP 90/46
[2019-08-29] MEDS ORDERED: HYDRALAZINE HCL 50MG TABLET PO NR (12:20)
[2019-08-29] MEDS ORDERED: SODIUM BICARBONATE 8.4% MEQ/ML 50ML VIAL IV ONE (13:23)
[2019-08-29] MEDS ORDERED: EPINEPHRINE 0.1MG/ML (1:10,000) 10ML SYR ONE (13:23)
[2019-08-29] MEDS ORDERED: HYDRALAZINE HCL 100MG TABLET PO SCH (14:00)
== END 2019-08-29 13:15 | disposition expired ==
LOC: ER 02:20 → 7WST 05:20 → UNDOADMIN 05:20 → 7WST 05:21 → EDBEDREQTM 05:30 → EDBEDREQ 05:30 → SUPCPDRO 09:13 → ENRESERV 20:12 → ER 21:04 → UNDODISIN 08-29 15:17
PROVIDERS: ADMIT Internal Medicine; ATTEND Internal Medicine
PROC: 0BH17EZ Insertion of Endotracheal Airway into Trachea, Via Natural or Artificial Opening (ICD-10-PCS; principal; 2019-08-29)
PROC: 5A12012 Performance of Cardiac Output, Single, Manual (ICD-10-PCS; 2019-08-29)
PROC: 5A1935Z Respiratory Ventilation, Less than 24 Consecutive Hours (ICD-10-PCS; 2019-08-29)